=== PATIENT | female | born 1980 | race Caucasian/White ===

== ENCOUNTER → 2016-12-03 12:58 | Outpatient (CLI) | payer MEDICAID ==
[2016-04-22 08:01] VITALS: BMI 24.0
[~2016-12-03 12:58] MED LIST: ANUSOL-HC 2.5%30 GM RC; MIRALAX17 GM PO; OXYCODONE HCL5 MG PO; VALIUM5 MG PO; ZANTAC150 MG PO
[2016-12-03 13:32] LABS: HEMATOCRIT 46.5 % (36.0-48.0); HEMOGLOBIN 16.1 g/dL (12-16); WBC 7.5 10x3/uL (4.8-10.8)
[2016-12-03 14:00] LABS: CREATININE - SERUM 0.5 mg/dL (0.6-1.3)
[2016-12-03 14:11] LABS: INR 0.99 (0.85-1.17); PROTIME 12.9 SECONDS (11.6-15.0)
== END | disposition home or self-care (01) ==
LOC: D.LAB 12:58
PROVIDERS: Specialist
DX: Z01.812 Encounter for preprocedural laboratory examination (principal); I10 Essential (primary) hypertension; T14.8 Other injury of unspecified body region

== ENCOUNTER → 2017-10-11 13:58 | Outpatient (CLI) | payer OTHER ==
[2017-09-24 09:34] VITALS: BMI 28.7
--- NOTE | ~2017-10-11 | EC ---
PATIENT:BRITTNY ARREOLA DATE OF SERVICE: 10/11/17 SEX: F MEDICAL RECORD: [id number] DATE OF : 76 LOCATION:D[facility] AGE OF PATIENT: 37 ADMISSION DATE: 10/11/17 REFERRING PHYSICIAN: INTERPRETING PHYSICIAN: ANDREA DIXON MD ECHOCARDIOGRAM REPORT ECHO CHARGES 4 ECHO COMPLETE Date: 10/11 CLINICAL DIAGNOSIS: CP/PALPITATIONS ECHOCARDIOGRAPHIC MEASUREMENTS (adult normal given) AC root (d.<3.7cm) 2.7 cm LV Septum d (<1.2 cm> 1.0 cm Valve Excursion 1.9 cm LV Septum (systole) 1.6 cm Left Atria (s.<4.0cm> 3.7 cm LVPW d(<1.2cm) 1.0 cm RV (d.<2.3cm) 3.1 cm LVPW (sytole) 1.9 cm LV diastole(<5.6CM) 5.6 cm MV E-F(>70mm/sec) cm LV systole 2.5 cm LVOT Diameter 1.8 cm MV exc.(>10mm) cm Est.ejection fraction (50-75%) % DOPPLER: LVIT cm/sec A 78.0 cm/sec E 52.0 cm/sec LA cm/sec RVSP 30.4 mmHg LVOT 110 cm/sec AOP1/2T m/s Asc. Ao 146 cm/sec RVOT 58.0 cm/sec RA cm/sec PA 94.0 cm/sec AV Gradient Peak 8.6 mmHg AV Mean 4.2 mmHg AV Area 1.6 cm MV Gradient Peak 3.1 mmHg MV Mean 1.2 mmHg MV Area cm COMMENTS: Cash Processing Specialist: Suzanne MENCHACAOE [employer]el Manager: 4 Dr. Dixon TAPE# PACS Pericardial Effusion N DATE OF SERVICE: PROCEDURE: Transthoracic echocardiogram. FINDINGS: 1. Left ventricle, normal size, normal function, ejection fraction 60%. 2. The left atrium is normal in structure and function. 3. Aortic valve is normal. 4. The mitral valve has trace to mild mitral regurgitation, otherwise structurally normal. ECHOCARDIOGRAM REPORT [id number] BRITTNY ARREOLA 5. The tricuspid valve has trace tricuspid regurgitation with normal right ventricular systolic pressure. 6. The pericardium is normal. 7. The right ventricle is upper limits to normal to mildly dilated with normal function. 8. The right atrium is normal. 9. Pulmonic valve is normal. CONCLUSION: The patient has normal echocardiogram with mild diastolic dysfunction. TRANSINT:[id number] Voice Confirmation ID: [id number] DOCUMENT ID: [id number] ANDREA DIXON MD at 1426 CC: [id number] DICTATION DATE: 10/12/17 1209 ORNAMENTAL METAL ERECTOR APPRENTICE: 10/12/17 1255 DEP CLI 10/11/[address] [address]
== END | disposition home or self-care (01) ==
LOC: D.ECHO 13:00
DX: R07.9 Chest pain, unspecified (principal); R00.2 Palpitations

== ENCOUNTER → 2019-12-08 08:06 | Outpatient (CLI) | payer MEDICAID ==
[2017-09-24 09:34] VITALS: BMI 28.7
== END | disposition home or self-care (01) ==
LOC: D.CT 08:06
PROVIDERS: ATTEND Clinical Nurse Specialist Adult Health
DX: R10.9 Unspecified abdominal pain (principal)

== ENCOUNTER → 2020-03-04 09:22 | Outpatient (CLI) | payer MEDICAID ==
[2017-09-24 09:34] VITALS: BMI 28.7
--- NOTE | 2020-03-04 11:17 | NUR ---
PT CONSENTED FOR A CERVICAL MYELOGRAM WITH COMPUTED TOMOGRAPHY FOLLOWING. TIME OUT PERFORMED BY LISY ALEXANDRA (R) AND DR. SPEAR AT 1035 AM
== END | disposition home or self-care (01) ==
LOC: D.RAD 09:00
PROVIDERS: ATTEND Neurological Surgery
DX: M54.12 Radiculopathy, cervical region (principal)

== ENCOUNTER 2020-03-07 16:45 | Emergency (ER) | payer MEDICAID ==
[~2020-03-07] VITALS: Ht 162.6 cm; Wt 70.5 kg
[2020-03-07 16:54] VITALS: Ht 162.6 cm; Wt 70.5 kg
[2020-03-07 18:13] LABS: BASOPHILS 0.2 % (0-2); EOSINOPHILS 0.9 % (0-7); HEMATOCRIT 43.4 % (36.0-48.0); HEMOGLOBIN 15.1 g/dL (12-16); IMMATURE GRANULOCYTES 0.2 % (0-5); LYMPHOCYTES 18.4 % (15-50); MCHC 34.8 g/dL (31.0-37.0); MCV 91.9 fL (80.0-100.0); MONOCYTES 5.8 % (2-11); NEUTROPHILS 74.5 % (40-80); PLATELET COUNT 257 10x3/uL (130-400); RBC 4.72 10x6/uL (4.00-5.40); RDW 12.8 % (11.5-14.5)
[2020-03-07 18:17] LABS: CALC OSMOLALITY 257 mosm/kg (275-300); CALCIUM 9.1 mg/dL (8.5-10.1); CARBON DIOXIDE 22.3 mmol/L (21.0-32.0); CHLORIDE - SERUM 102 mmol/L (98-107); CREATININE - SERUM 0.7 mg/dL (0.6-1.3); GLUCOSE 101 mg/dL (74-106); POTASSIUM - SERUM 3.6 mmol/L (3.5-5.1); SODIUM 128 mmol/L (136-145); UREA NITROGEN 14 mg/dL (7-18); eGFR NON AFRICAN AMERICAN > 90 mL/min (90-120)
[2020-03-07 18:20] LABS: ALBUMIN 4.1 g/dL (3.4-5.0); ALKALINE PHOSPHATASE 60 U/L (30-120); ALT (SGPT) 17 U/L (10-68); BILIRUBIN - TOTAL 0.39 mg/dL (0.2-1.3); PROTEIN - SERUM 7.3 g/dL (6.4-8.2)
[2020-03-07 21:31] VITALS: BP 115/72
== END 2020-03-07 21:31 | disposition home or self-care (01) ==
LOC: D.ER 16:45
PROVIDERS: Family Medicine
DX: G97.1 Other reaction to spinal and lumbar puncture (principal); R51 Headache

== ENCOUNTER 2020-08-28 23:55 | Observation (INO) | payer OTHER ==
[~2020-08-28] VITALS: Ht 162.6 cm; Wt 70.5 kg
[~2020-08-28 23:55] MED LIST changes: +PROAIR HFA8.5 G1 INH
[2020-08-29] VITALS (9 sets, daily range): BP systolic 101–131; BP diastolic 50–88; Ht 162.6 cm; Wt 70.5 kg
[2020-08-29 01:09] LABS: BASOPHILS 0.3 % (0-2); EOSINOPHILS 2.7 % (0-7); HEMATOCRIT 43.2 % (36.0-48.0); HEMOGLOBIN 14.4 g/dL (12-16); IMMATURE GRANULOCYTES 0.3 % (0-5); LYMPHOCYTE ABS# 3.43 10x3/uL (1.18-3.74); LYMPHOCYTES 28.9 % (15-50); MCH 31.6 pg (26.0-34.0); MCHC 33.3 g/dL (31.0-37.0); MCV 94.9 fL (80.0-100.0); MEAN PLATELET VOLUME 9.6 fL (7.4-10.4); MONOCYTES 7.5 % (2-11); NEUTROPHIL ABS# 7.16 10x3/uL (1.56-6.13); NEUTROPHILS 60.3 % (40-80); PLATELET COUNT 324 10x3/uL (130-400); RBC 4.55 10x6/uL (4.00-5.40); RDW 13.1 % (11.5-14.5); WBC 11.9 10x3/uL (4.8-10.8)
[2020-08-29 01:13] LABS: CALC OSMOLALITY 277 mosm/kg (275-300); CALCIUM 8.8 mg/dL (8.5-10.1); CARBON DIOXIDE 29.5 mmol/L (21.0-32.0); CHLORIDE - SERUM 103 mmol/L (98-107); CREATININE - SERUM 0.6 mg/dL (0.6-1.3); GLUCOSE 90 mg/dL (74-106); SODIUM 140 mmol/L (136-145); UREA NITROGEN 9 mg/dL (7-18); eGFR NON AFRICAN AMERICAN > 90 mL/min (90-120)
[2020-08-29 01:18] LABS: ALBUMIN 3.9 g/dL (3.4-5.0); ALKALINE PHOSPHATASE 59 U/L (30-120); ALT (SGPT) 23 U/L (10-68); BILIRUBIN - TOTAL 0.23 mg/dL (0.2-1.3); PROTEIN - SERUM 7.3 g/dL (6.4-8.2)
[2020-08-29 03:57] LABS: CKMB 1.2 U/L (0.0-3.6); CREATINE KINASE 52 UL (21-215); TROPONIN-I < 0.017 ng/mL (0.000-0.060)
--- NOTE | 2020-08-29 07:10 | NUR ---
PATIENT SLEPPING ON RIGHT SIDE.
--- NOTE | 2020-08-29 10:15 | NUR ---
AWAKE, MOANING LOUDLY AND THRASHING AROUND IN BED IN PAIN. STATES 10/10 ON PAIN SCALE. INFORMED THAT PAIN MED CANNOT BE GIVEN AGAIN UNTIL 1430. DR. JAMES ON UNIT. ORDER RECEIVED.
--- NOTE | 2020-08-29 10:41 | NUR ---
MEDICATED WITH DILAUDID AND TORADOL.
--- NOTE | 2020-08-29 11:15 | NUR ---
PATIENT IS CALM NOW. STATES PAIN IS 5/10. WATER GIVEN.
--- NOTE | 2020-08-29 22:00 | NUR ---
ENTERED ROOM TO ADMIT PATIENT. PT STATES SHE JUST HAD LARGE SOFT BOWEL MOVEMENT, PAIN IS MOSTLY GONE AND WANTS TO GO HOME. SPOKE WITH LEA GARRETT. DISCHARGE OF BY SURGERY PER NOTE. WENT TO ROOM TO REVIEW DISCHARGE INSTRUCTIONS. PT C/O PRESSURE PAIN, REQUESTING PAIN MED. GAVE TORADOL AND REMOVED RIGHT WRIST IV, CATHETER INTACT. REVIEWED DISCHARGE INSTRUCTIONS. PROVIDED SITZ AVILES AND INFLATABLE DOUGHNUT CUSHION FOR PT TO TAKE HOME. TRANSPORTED PT OFF FLOOR BY WHEELCHAIR.
== END 2020-08-29 22:09 | disposition home or self-care (01) ==
LOC: D.ER 23:55 → D.EDHOLD 08-29 00:54 → D.ER 08-29 00:54 → D.EDHOLD 08-29 00:54 → OBSVTIME 08-29 00:54 → D.EDHOLD 08-29 16:24 → D.MS 08-29 16:24 → D.EDHOLD 08-29 22:09 → D.MS 08-29 22:09 → D.EDHOLD 08-29 22:09
PROVIDERS: Family Medicine; ADMIT Family Medicine; ATTEND Family Medicine
DX: K62.89 Other specified diseases of anus and rectum (principal); G89.18 Other acute postprocedural pain; J44.9 Chronic obstructive pulmonary disease, unspecified; K21.9 Gastro-esophageal reflux disease without esophagitis; F41.8 Other specified anxiety disorders; D72.829 Elevated white blood cell count, unspecified; I10 Essential (primary) hypertension

== ENCOUNTER → 2020-10-02 09:37 | Outpatient (CLI) | payer OTHER ==
[2020-08-29 20:32] VITALS: BMI 26.6
== END | disposition home or self-care (01) ==
LOC: D.US 09:30
PROVIDERS: ATTEND Internal Medicine Gastroenterology
DX: R10.84 Generalized abdominal pain (principal)

== ENCOUNTER → 2020-11-14 10:04 | Outpatient (CLI) | payer OTHER ==
[2020-08-29 20:32] VITALS: BMI 26.6
== END | disposition home or self-care (01) ==
LOC: D.RAD 10:04 → D.NM 11:30
PROVIDERS: ATTEND Internal Medicine Gastroenterology
DX: R13.10 Dysphagia, unspecified (principal); R10.13 Epigastric pain; R11.0 Nausea